=== PATIENT | female | born 1970 | race Caucasian/White ===

== ENCOUNTER 2018-03-25 11:07 | Emergency (ER) | payer OTHER ==
[~2018-03-25] VITALS: Ht 167.6 cm; Wt 68.3 kg
[~2018-03-25 11:07] MED LIST: ASPIRIN81 M1 PO; LEXAPRO10 MG PO; TOPROL XL50 MG PO
[2018-03-25 11:34] LABS: HEMATOCRIT 40.3 % (36.0-46.0); HEMOGLOBIN 13.7 G/DL (11.9-15.5); MCH 30.6 PG (29.0-34.0); PLATELET COUNT 212 K/uL (156-360); RBC DIS.WIDTH-CV 12.7 % (11.8-14.6); RBC DIS.WIDTH-SD 42.1 % (39-53); RED BLOOD COUNT 4.48 M/uL (3.80-5.20); WHITE BLOOD COUNT 5.2 K/uL (4.1-10.2)
[2018-03-25 11:42] LABS: ALBUMIN 4.3 g/dL (3.2-4.8)
[2018-03-25 11:43] LABS: CHLORIDE 103 mEq/L (99-109); SODIUM 139 mEq/L (136-147)
[2018-03-25 11:45] LABS: GLUCOSE 97 mg/dL (70-99)
[2018-03-25 11:47] LABS: TOTAL BILIRUBIN 1.9 mg/dL (0.0-1.0)
[2018-03-25 11:48] LABS: ALKALINE PHOSPHATASE 39 IU/L (3-129)
[2018-03-25 11:49] LABS: CREATININE 0.8 mg/dL (0.6-1.3); GFR ESTIMATE (CALCULATED) > 59 mL/min/
[2018-03-25 11:50] LABS: AST (GOT) 18 IU/L (2-34); UREA NITROGEN (BUN) 15 mg/dL (9-23)
[2018-03-25 11:52] LABS: ALT (GPT) 17 IU/L (3-49)
[2018-03-25 11:59] LABS: QUANTITATIVE HCG < 4.0 MIU/ML
[2018-03-25 12:52] LABS: LIPASE 13 U/L (1.0-51.0)
[2018-03-25 13:36] LABS: APPEARANCE CLEAR ((CLEAR)); BILIRUBIN NEGATIVE; BLOOD SMALL; COLOR YELLOW ((YELLOW)); GLUCOSE (STRIP) NEGATIVE; KETONES NEGATIVE; LEUKOCYTES NEGATIVE; NITRITE NEGATIVE; PROTEIN (STRIP) NEGATIVE; SPECIFIC GRAVITY 1.019 (1.000-1.030); UROBILINOGEN 0.2 MG/DL (0.2-1.0)
[2018-03-25 13:40] LABS: BACTERIA RARE /HPF; EPITHELIAL CELLS RARE /HPF; MUCUS TRACE /LPF; RED BLOOD CELLS 0-5 /HPF (0-5); UCUL ADDED? NO; WHITE BLOOD CELLS 0-5 /HPF (0-5)
[2018-03-25] MEDS ORDERED: PRILOSEC20 MG PO (14:09)
[2018-03-25 14:21] VITALS: BP 122/67
== END 2018-03-25 14:23 | disposition home or self-care (01) ==
LOC: EME 11:07
DX: K21.9 Gastro-esophageal reflux disease without esophagitis (principal); N83.291 Other ovarian cyst, right side; I10 Essential (primary) hypertension; E78.5 Hyperlipidemia, unspecified; Z79.82 Long term (current) use of aspirin
CPT/HCPCS: 74177; 80053; 81003; 83690; 84702; 85027; 93005; 99281; 99284; J7030